=== PATIENT | female | born 1985 | race Caucasian/White ===

== ENCOUNTER 2021-04-14 23:13 | Emergency (ER) | payer MEDICAID, OTHER ==
[~2021-04-14] VITALS: Ht 165.1 cm; Wt 97.2 kg
[2021-04-15] MEDS ORDERED: IBUPROFEN 600 MG TABLET PO ONE (01:00)
[2021-04-15] MEDS ORDERED: IBUPROFEN 600 MG TABLET ONE (01:12)
--- NOTE | 2021-04-15 01:32 | NUR ---
BREAK RN: SLING APPLIED TO LEFT ARM, PT TOLERATED WELL. ICE RE-APPLIED. PT ABLE TO DEMONSTARTE APPROPRIATE SLING APPLICATION.
[2021-04-15 01:46] VITALS: BP 137/85
--- NOTE | 2021-04-15 01:46 | NUR ---
Patient given discharge instructions and they have confirmed that they understand the instructions. Patient ambulatory with steady gait. NAD, all questions answered appropriately, denies additional needs at this time. No personal belongings left in room after discharge.
== END 2021-04-15 01:48 | disposition home or self-care (01) ==
LOC: ED 23:59
DX: S52.125A Nondisplaced fracture of head of left radius, initial encounter for closed fracture (principal); S63.522A Sprain of radiocarpal joint of left wrist, initial encounter; S80.02XA Contusion of left knee, initial encounter; S80.01XA Contusion of right knee, initial encounter; W01.0XXA Fall on same level from slipping, tripping and stumbling without subsequent striking against object, initial encounter; Y93.89 Activity, other specified; Y92.89 Other specified places as the place of occurrence of the external cause; Y99.8 Other external cause status
CPT/HCPCS: 99284